=== PATIENT | female | born 1975 | race African-American/Black ===

== ENCOUNTER 2025-02-25 12:42 | Emergency (ER) | payer SELFPAY ==
[2025-02-25] VITALS (9 sets, daily range): BP systolic 170–215; BP diastolic 99–136; PULSE 66–86; RESP 14–18; TEMP 36.7–37; O2SAT 97–99
--- NOTE | ~2025-02-25 | XR_ITS ---
EXAMINATION: XR chest 2V, 02/25/2025 14:05 CDT HISTORY: chest pain COMPARISON: No comparisons available. Technique: 2 views obtained. Findings: The lungs are clear, no effusion. No pneumothorax. Heart is normal size. Mediastinal and hilar contours are within normal limits. Bony thorax no acute abnormality. Impression: No acute cardiopulmonary abnormality. Reviewed, dictated and finalized at location A. Impression: No acute cardiopulmonary abnormality.
--- NOTE | 2025-02-25 13:04 | ED.GENADULT ---
HPI - General Adult General Chief complaint: Unspecified <Madeline Witt APRN - Last Filed: 02/25/25 13:06> Stated complaint: High BP <Madeline Witt APRN - Last Filed: 02/25/25 13:06> Time Seen by Provider: 02/25/25 13:04 <Madeline Witt APRN - Last Filed: 02/25/25 13:06> Focused HPI: Patient is a 50-year-old female who presents to the ER with resolved chest pain and concerns for high blood pressure. She reports her symptoms started earlier today. Patient denies any recent fevers, shortness of breath, lower extremity swelling, or abdominal pain. She denies any medical history relevant to this ER visit pain GENERAL: Well-appearing, well-nourished, and in no acute distress. HEAD: Normocephalic, atraumatic. CHEST: Clear to auscultation. ?No respiratory distress. HEART: Tachycardia, regular rhythm NEURO: ?Alert and oriented x3. Patient screened in triage and initial orders placed.? ?Additional care and disposition to be based upon?diagnostic testing and treatment. <Madeline Witt APRN - Last Filed: 02/25/25 13:06> History of Present Illness HPI narrative: per hpi <Krista Collins MD - Last Filed: 02/25/25 21:39> Related Data Allergies/adverse reactions: Allergies Allergy/AdvReac Type Severity Reaction Status Date / Time No Known Allergies Allergy Verified 02/25/25 12:58 <Madeline Witt APRN - Last Filed: 02/25/25 13:06> Review of Systems Review of Systems: All systems reviewed & are unremarkable except as noted in HPI and below <Krista Collins MD - Last Filed: 02/25/25 21:39> Exam Narrative: EXAMINATION OF ORGAN SYSTEMS/BODY AREAS: Constitutional: Vital signs per nursing GENERAL:[No acute distress, non-toxic appearing.] HEAD: Normal with no signs of head trauma. EYES: EOMI, conjunctiva normal ENT: Hearing grossly intact LUNGS: Nonlabored breathing. HEART: [Regular rate and rhythm] ABD: [Soft], [nontender to palpation] EXT: Normal range of motion SKIN: [No rashes or lesions.] NEURO: [Alert and oriented x 3. No gross focal sensory or strength deficits.] PSYCH: Normal affect <Krista Collins MD - Last Filed: 02/25/25 21:39> Course Vital Signs Vital signs: Vital Signs Temperature 98.6 F 02/25/25 12:56 Pulse Rate 86 02/25/25 12:56 Respiratory Rate 16 02/25/25 12:56 Blood Pressure 189/125 H 02/25/25 12:56 Pulse Oximetry 98 02/25/25 12:56 Temperature 98.1 F 02/25/25 20:49 Pulse Rate 72 02/25/25 20:49 Respiratory Rate 18 02/25/25 20:49 Blood Pressure 189/99 H 02/25/25 20:49 Pulse Oximetry 99 02/25/25 20:49 <Madeline Witt MARKETING OFFICER - Last Filed: 02/25/25 13:06> Vital Signs Temperature 98.6 F 02/25/25 12:56 Pulse Rate 86 02/25/25 12:56 Respiratory Rate 16 02/25/25 12:56 Blood Pressure 189/125 H 02/25/25 12:56 Pulse Oximetry 98 02/25/25 12:56 Temperature 98.1 F 02/25/25 20:49 Pulse Rate 72 02/25/25 20:49 Respiratory Rate 18 02/25/25 20:49 Blood Pressure 189/99 H 02/25/25 20:49 Pulse Oximetry 99 02/25/25 20:49 <Krista Collins MD - Last Filed: 02/25/25 21:39> Medical Decision Making MDM Narrative Medical decision making narrative: Patient states she was at work when she felt what felt like her usual hot flashes, a co-worker to the blood pressure noticed that it was high and had her come to the emergency room. Patient states she has not seen a doctor in many years, has not been diagnosed with high blood pressure in the past. She denies any chest pain, shortness of breath, she has no headaches or dizziness or blurry vision. EKG - 12-Lead: Performed at 1999. Interpreted by me. [Sinus rhythm]. Rate 62. [Normal] axis. CA-interval 146. QRS duration 107. QTc 437. She does have some flattened T-waves in anterolateral leads that she has no prior EKG for comparison Impression: No EKG evidence of acute ischemia or dysrhythmia. Chest x-ray on my independent interpretation does not show any obvious consolidation pneumothorax Labs including troponin are negative, though she does have some very minimally elevated LFTs. Patient with asymptomatic hypertension. No signs or symptoms of end organ dysfunction; no chest pain or shortness of breath, neurological deficits, severe headaches, visual disturbance, oliguria, or symptoms of dissection/AAA). Long-term risks of hypertension, especially uncontrolled, were discussed including increased risks of kidney disease, vascular disease, stroke and heart disease. We discussed lifestyle modifications including diet and exercise. I will start patient on amlodipine here and provide script for short course, patient expressed understanding of the instructions and strongly advised to follow-up with PMD for further management. <Krista Collins MD - Last Filed: 02/25/25 21:39> Vital Signs Vital Signs: Vital Signs Temperature 98.6 F 02/25/25 12:56 Pulse Rate 86 02/25/25 12:56 Respiratory Rate 16 02/25/25 12:56 Blood Pressure 189/125 H 02/25/25 12:56 Pulse Oximetry 98 02/25/25 12:56 Temperature 98.1 F 02/25/25 20:49 Pulse Rate 72 02/25/25 20:49 Respiratory Rate 18 02/25/25 20:49 Blood Pressure 189/99 H 02/25/25 20:49 Pulse Oximetry 99 02/25/25 20:49 <Madeline Witt APRN - Last Filed: 02/25/25 13:06> Vital Signs Temperature 98.6 F 02/25/25 12:56 Pulse Rate 86 02/25/25 12:56 Respiratory Rate 16 02/25/25 12:56 Blood Pressure 189/125 H 02/25/25 12:56 Pulse Oximetry 98 02/25/25 12:56 Temperature 98.1 F 02/25/25 20:49 Pulse Rate 72 02/25/25 20:49 Respiratory Rate 18 02/25/25 20:49 Blood Pressure 189/99 H 02/25/25 20:49 Pulse Oximetry 99 02/25/25 20:49 <Krista Collins MD - Last Filed: 02/25/25 21:39> Lab Data Result diagrams: 02/25/25 19:36 02/25/25 19:36 <Madeline Witt, MARKETING OFFICER - Last Filed: 02/25/25 13:06> Labs: Lab Results 02/25/25 Range/Units 19:36 WBC 8.9 (4.5-10.0) K/mm3 RBC 4.10 L (4.2-5.4) M/mm3 Hgb 13.3 (12.0-15.0) g/dL Hct 40.3 (37.0-47.0) % MCV 98.3 (80-100) fl MCH 32.4 (26-34) pg MCHC 33.0 (32-36) g/dl RDW 13.1 (11.5-14.5) % Plt Count 282 (150-375) k/mm3 MPV 9.1 (7.4-10.4) fl Immature Gran % (Auto) 0.1 (0-0.5) % Neut % (Auto) 53.8 (45.5-73.1) % Lymph % (Auto) 33.5 (18.3-44.2) % [place] % (Auto) 6.3 (2.6-8.5) % Eos % (Auto) 6.0 H (0-4.4) % Baso % (Auto) 0.3 (0.2-1.2) % Lymph # (Auto) 2.98 (0.9-3.2) K/mm3 [place] # (Auto) 0.6 (0.1-0.6) K/mm3 Eos # (Auto) 0.5 H (0-0.3) K/mm3 Baso # (Auto) 0.0 (0.0-0.1) K/mm3 Abs Immat Gran (auto) 0.01 (0.00-0.031) K/mm3 Absolute Neuts (auto) 4.8 (1.3-6.7) K/mm3 Absolute Nucleated RBC 0.000 (0.0-0.012) K/mm3 Nucleated RBC % 0.0 (0.0-0.2) % Sodium 137 (137-145) mmol/L Potassium 3.4 (3.4-5.0) mmol/L Chloride 106 (98-107) mmol/L Carbon Dioxide 23 (22-30) mmol/L Anion Gap 8 (4-12) mmol/L BUN 17 (7-17) mg/dL Creatinine 0.75 (0.7-1.0) mg/dL Estim Creat Clear Calc 80 ml/min Estimated GFR > 60 (59 - ) Glucose 105 (65-110) mg/dL Calcium 9.2 (8.4-10.2) mg/dL Total Bilirubin 0.8 (0.2-1.3) mg/dL AST 43 H (14-36) U/L ALT 49 H (6-35) U/L Alkaline Phosphatase 117 (38-126) U/L Troponin I < 0.012 (0.000-0.034) ng/mL Total Protein 8.2 (6.3-8.2) g/dL Albumin 4.4 (3.5-5.1) g/dL Lipase 35 (23-300) U/L <Madeline Witt, MARKETING OFFICER - Last Filed: 02/25/25 13:06> Lab Results 02/25/25 Range/Units 19:36 WBC 8.9 (4.5-10.0) K/mm3 RBC 4.10 L (4.2-5.4) M/mm3 Hgb 13.3 (12.0-15.0) g/dL Hct 40.3 (37.0-47.0) % MCV 98.3 (80-100) fl MCH 32.4 (26-34) pg MCHC 33.0 (32-36) g/dl RDW 13.1 (11.5-14.5) % Plt Count 282 (150-375) k/mm3 MPV 9.1 (7.4-10.4) fl Immature Gran % (Auto) 0.1 (0-0.5) % Neut % (Auto) 53.8 (45.5-73.1) % Lymph % (Auto) 33.5 (18.3-44.2) % [place] % (Auto) 6.3 (2.6-8.5) % Eos % (Auto) 6.0 H (0-4.4) % Baso % (Auto) 0.3 (0.2-1.2) % Lymph # (Auto) 2.98 (0.9-3.2) K/mm3 [place] # (Auto) 0.6 (0.1-0.6) K/mm3 Eos # (Auto) 0.5 H (0-0.3) K/mm3 Baso # (Auto) 0.0 (0.0-0.1) K/mm3 Abs Immat Gran (auto) 0.01 (0.00-0.031) K/mm3 Absolute Neuts (auto) 4.8 (1.3-6.7) K/mm3 Absolute Nucleated RBC 0.000 (0.0-0.012) K/mm3 Nucleated RBC % 0.0 (0.0-0.2) % Sodium 137 (137-145) mmol/L Potassium 3.4 (3.4-5.0) mmol/L Chloride 106 (98-107) mmol/L Carbon Dioxide 23 (22-30) mmol/L Anion Gap 8 (4-12) mmol/L BUN 17 (7-17) mg/dL Creatinine 0.75 (0.7-1.0) mg/dL Estim Creat Clear Calc 80 ml/min Estimated GFR > 60 (59 - ) Glucose 105 (65-110) mg/dL Calcium 9.2 (8.4-10.2) mg/dL Total Bilirubin 0.8 (0.2-1.3) mg/dL AST 43 H (14-36) U/L ALT 49 H (6-35) U/L Alkaline Phosphatase 117 (38-126) U/L Troponin I < 0.012 (0.000-0.034) ng/mL Total Protein 8.2 (6.3-8.2) g/dL Albumin 4.4 (3.5-5.1) g/dL Lipase 35 (23-300) U/L <Krista Collins MD - Last Filed: 02/25/25 21:39> Discharge Plan Discharge Clinical Impression: Asymptomatic hypertension <Madeline Witt APRN - Last Filed: 02/25/25 13:06> Patient Disposition: Home <Madeline Witt APRN - Last Filed: 02/25/25 13:06> Condition: Stable <Madeline Witt APRN - Last Filed: 02/25/25 13:06> Instructions: Antibiotic Form, Hypertension (ED) <Madeline Witt APRN - Last Filed: 02/25/25 13:06> Additional Instructions: Please follow-up with a primary care doctor and possibly with manufacturing electrician. If you start having any chest pain, shortness of breath, headache or vision changes or anything else concerning, please come back to the hospital. Please start taking the blood pressure medications as prescribed. <Madeline Witt, SUMAN - Last Filed: 02/25/25 13:06> Patient Language: Thai <Madeline Witt APRN - Last Filed: 02/25/25 13:06> Prescriptions: New amlodipine 10 mg tablet 10 mg PO DAILY Qty: 30 0RF <Madeline Witt, MARKETING OFFICER - Last Filed: 02/25/25 13:06> Follow-up/Referrals: Umair Cintron MD [Physician, Cardiology] - 2 Days Scooter Acosta MD [Physician, Family Practice] - 2 Days PHYSICIAN,HEAD GROWER [Primary Care Provider, Internal Medicine] <Madeline Witt, SUMAN - Last Filed: 02/25/25 13:06>
--- OUTSIDE RECORDS SUMMARY | 2025-02-25 19:26 | XMS_ITS | Clinical Summary ---
Author Organization [facility] Medical Office Building [address] Address [address] [place] [address] Care Team Providers Care Chore Tender Name Role Phone Ashly Reeves MD Unavailable [phone] Paula Nino MD Primary Care Provider Allergies Active Allergy Reactions Criticality Noted Date Comments Pecan Nut Rash Medium 01/11/2023 Medications omeprazole (PriLOSEC) 20 mg capsule Take 1 capsule (20 mg total) by mouth daily Active iron fum,ps-folic-B comp,C no.9 125 mg iron- 1 mg capsuleIndicat ions:Mineral Deficiency Take 1 capsule by mouth daily 30 capsule 11 08/17/19 22 Active ibuprofen (ADVIL,MOTRIN) 600 mg tabletIndicati ons:Pain Take 1 tablet (600 mg total) by mouth every 6 (six) hours 30 tablet 1 10/13/19 22 Active cyclobenzaprin e (FLEXERIL) 10 mg tablet cyclobenzaprine 10 mg tablet TAKE 1 TABLET BY MOUTH THREE TIMES DAILY NEEDED Active ergocalciferol (VITAMIN D) 50,000 unit capsule Vitamin D2 1,250 mcg (50,000 unit) capsule TAKE 1 CAPSULE BY MOUTH ONCE A WEEK Active Active Problems Patient Care Coordination No te Formatting of this note migh t be different from the original. Alexia Singh is a 46 y.o. female admitted for LOW HEMOGLOBIN on 08/15/2021. Waiting for CBC to return and discharge when Hb is above 7 and will get uterine biopsy before d/c. Anticipate discharge in 1 day. Anticipated discharge to home. Diet: reg Code: full Consults: none DVT ppx: not indicated due to heavy period GI ppx: not indicated Problem Noted Date Diagnosed Date Ventral hernia without obstruction or gangrene 0 01/11/2023 Current mild episode of major depressive disorde r 08/25/2021 Assessment & Plan (08/25/2021 5:30 PM CDT): Will increase her prozac to 40mg Well woman exam 08/25/2021 Overview (08/25/2021): Lab: Pap:all normal. Last one was 2017. No recent labs. Sravani: 2019. Colonoscopy:due BMD: Gardasil: didn't have Iron deficiency anemia due to chronic blood loss Assessment & Plan (08/16/2021 7:48 AM PULLER MACHINE): Pt is a 46 yo F w/ a h/o of dysmenorrhea and uterine fibroids who presents for anemia 2/2 to blood loss. She was transfused 3 unit of PRBC w/ improvement of her Hb from 4 to 7.1. She is going to follow up w/ Dr. Reeves for hysterectomy in the near future. 08/16, he VS are stable, PE demonstrated conjunctival palor, and peripheral pulses were 2+ and equal in all extremities. - will obtain uterine biopsy on 08/16 - Discussed alternating tylenol and ibuprofen, and adding antihistamine for appropriate pain management instead of using etoh - Have pt f/u w/ Dr. Reeves for further gynecologic care Resolved Problems Problem Noted Date Diagnosed Date Resolved Date Iron deficiency anemia, unspecified 08/21/2021 01/11/2023 Dysmenorrhea 08/16/2021 01/11/2023 Assessment & Plan (08/16/2021 7:47 AM PULLER MACHINE): Continue as planned under Iron Deficiency anemia due to chronic blood loss Menorrhagia with regular cycle 08/16/2021 01/11/2023 Overview (08/16/2021): Added automatically from request for surgery [id number] Assessment & Plan (10/28/2021 7:04 AM CDT): S/p tahbso Doing well Return to full activies To continue iron for the full 6 months as she was so depleted. rto 12m for wwe Assessment & Plan (08/25/2021 5:30 PM CDT): To usg To come to the [place] office for EMB To tsh and cbc Pap done today Uterine leiomyoma 08/16/2021 01/11/2023 Overview (08/16/2021): Added automatically from request for surgery [id number] Assessment & Plan (09/11/2021 6:28 AM CDT): Doing well after TAHBSO RTO 4 weeks for full exam Restrictions reviewed. Surgical History Surgery Date Site/Laterality Comments HYSTERECTOMY 08/29/2021 Medical History Medical History Date Comments Anemia Depression GERD (gastroesophageal reflu x disease) Uterine leiomyoma 08/16/2021 Added automati juan f from request for surgery [id number] Menorrhagia with regular cycle 08/16/2021 A dded automatically from request for surgery [id number] Dysmenorrhea 08/16/2021 Family History Medical History Relation Name Comments Hypertension Father Diabetes Father's Brother Diabetes Father's Sister Cervical cancer Mother Hypertension Mother Colon cancer Neg Hx Uterine cancer Neg Hx Relation Name Status Comments Father Father's Brother Father's Sister Mother Social History Tobacco Use Types Packs/Day Years Used Date Smoking Tobacco: Former Smokeless Tobacco: Never Tobacco Cessation:Counseling Given: Not Answered Comments:Occasional cigarette Alcohol Use Standard Drinks/Week Comments Never 0 (1 standard drink = 0.6 oz pur e alcohol) Humiliation, Afraid, Rape, and Kick questionnair e Answer Date Recorded Within the last year, have y ou been afraid of your partner or ex-partner? No 08/14/2021 Within the last year, have y ou been humiliated or emotionally abused in other ways by your partner or ex-partner? No Within the last year, have y ou been kicked, hit, slapped, or otherwise physically hurt by your partner or ex-partner? No 08/14/2021 Within the last year, have y ou been raped or forced to have any kind of sexual activity by your partner or ex-partner? No 08/14/2021 AUDIT-C Answer Date Recorded Q1: How often do you have a drink containing alc ohol? Never 08/29/2021 Average Number of Drinks Not on file 022 Frequency of Binge Drinking Not on file 08/09 PHQ-2 Answer Date Recorded PHQ-2 Total Score (If total score is 3 or more points, staff should administer the PHQ-9) 4 01/11/2023 Comments No Sex and Gender Information Value Date Recorded Sex Assigned at Not on file Legal Sex Female 2:54 PM PULLER MACHINE Gender Identity Not on file Sexual Orientation Not on file Obstetrics History Last Filed Vital Signs Vital Sign Reading Time Taken Comments Blood Pressure 148/84 01/11/2023 11:38 AM CDT Pulse 97 01/11/2023 10:48 AM CDT Temperature 36.3 C (97.3 F) 08/30/2021 11:45 AM CDT Respiratory Rate 16 08/30/2021 11:45 AM CDT Oxygen Saturation 100% 08/29/2021 3:10 PM CDT Inhaled Oxygen Concentration - - Weight 78.6 kg (173 lb 3.2 oz) 01/11/2023 10:48 AM CDT Height 162.6 cm (5' 4) 01/11/2023 10:48 AM CDT Body Mass Index 29.73 01/11/2023 10:48 AM CDT Plan of Treatment Health Maintenance Due Date Last Done Comments Breast Cancer Screening-Mammogram 1975 Colon Cancer Screening-Colonoscopy 1975 Hepatitis C Screening 1975 DTaP/Tdap/Td Vaccine (1 - Tdap) 1986 Hepatitis B Screening 1993 Regular Well Visit/Exam 18-64 1993 Depression Screening 01/12/2024 01/11/2023, 01/11/2023, 08/14/2021 Zoster Vaccine (1 of 2) 2025 Covid-19 Vaccine (3 - 2024- season) 2025 05/30/2021, 04/03/2021 Influenza Vaccine (#1) 2025 Cervical Cancer Screening Discontinued 08/14/2021 Pneumococcal vaccine <65 Aged Out No longer eligible based on patient's age to complete this topic Procedures Procedure Name Priority Date/Time Associated Diagnosis Comments PAP AND HIGH RISK HPV, REFLEX TO GENOTYPING Routine 08/14/2021 3:10 PM PULLER MACHINE Menorrhagia with regular cycle from Last 3 Months or Most Recently Relevant to Health Maintenance Results * Pap and High Risk HPV, reflex to Genotyping (08/14/2021 3:10 PM PULLER MACHINE) CLINICAL INFORMATION: [facility] Comment:ABNORMAL BLEEDING LMP [facility] Comment:08-12-21 Previous Pap [facility] Comment:INFORMATION NOT PROV IDED Prev. Bx [facility] Comment:INFORMATION NOT PROV IDED SOURCE: [facility] Comment:Cervix, Endocervix Pap, specimen adequacy [facility] Comment: Specimen processed and examined, but unsatisfactory for evaluation due to an insufficient number of squamous cells. HPV interp [facility] Comment: Unable to provide interpretation due to unsatisfactory specimen adequacy. [employer] [facility] Comment: LUDA CT(ASCP) CT screening location: [place] [address] [address] Ruelas [facility] Review manager code [facility] Comment: CHANDANA CT(ASCP) CT screening location: [place] [address] [address] K[address] Ruelas [facility] Comment [facility] Comment: EXPLANATORY NOTE: The Pap is a screening test for cervical cancer. It is not a diagnostic test and is subject to false negative and false positive results. It is most reliable when a satisfactory sample, regularly obtained, is submitted with relevant clinical findings and history, and when the Pap result is evaluated along with historic and current clinical information. Human papillomavirus DNA, High Risk E6/E7 Not Detected NOT DETECTED [facility] Comment: Not Detected High Risk HPV types (16,18,31,33,35,39,45,51,52, 56,58,59,66,68) were not detected. Other HPV types which cause anogenital lesions may be present. The significance of the other types of HPV in malignant processes has not been established. Methodology: Real Time PCR Thin prep 08/14/2021 3:10 PM PULLER MACHINE 08/15/2021 1:31 AM PULLER MACHINE Ashly Reeves MD LAB CYTOLOGY ORDERA BLES Final Result [facility] [id number] [place] [address] [facility] [address] [address] [place] [address] from Last 3 Months or Most Recently Relevant to Health Maintenance Insurance [employer] [facility] Advance Directives For more information, please contact: [phone] * Full Code (Latest Code Status on File) Date Activated Date Inactivated Comments 08/29/2021 10:45 AM 08/30/2021 11:05 PM Care Teams Chore Tender Relationship Specialty Start Date End Date Paula Nino MD PCP - General Family Practice 01/11/23 Ashly Reeves MD Consulting Physician Obstetrics and Gynecology 08/16/21
[2025-02-25 19:43] LABS: Hematocrit 40.3 % (37.0-47.0); Hemoglobin 13.3 g/dL (12.0-15.0); Immature Granulocyte Percent A 0.1 % (0-0.5); Lymphocytes Absolute Auto 2.98 K/mm3 (0.9-3.2); Mean Corpuscular HGB Conc 33.0 g/dl (32-36); Mean Corpuscular Hemoglobin 32.4 pg (26-34); Mean Corpuscular Volume 98.3 fl (80-100); Nucleated Red Blood Cells Absolute Auto 0.000 K/mm3 (0.0-0.012); Nucleated Red Blood Cells Perc 0.0 % (0.0-0.2); Platelet Count Result 282 k/mm3 (150-375); Red Blood Count 4.10 M/mm3 (4.2-5.4); White Blood Count 8.9 K/mm3 (4.5-10.0)
[2025-02-25 19:57] LABS: Alanine Aminotransferase 49 U/L (6-35); Albumin Level 4.4 g/dL (3.5-5.1); Alkaline Phosphatase 117 U/L (38-126); Anion Gap 8 mmol/L (4-12); Aspartate Amino Transferase 43 U/L (14-36); Bilirubin,Total 0.8 mg/dL (0.2-1.3); Blood Urea Nitrogen 17 mg/dL (7-17); Calcium 9.2 mg/dL (8.4-10.2); Carbon Dioxide 23 mmol/L (22-30); Chloride 106 mmol/L (98-107); Estimated CRCL calculation 80 ml/min; Estimated Glomerular Filt Rate > 60; Glucose 105 mg/dL (65-110); Lipase 35 U/L (23-300); Potassium 3.4 mmol/L (3.4-5.0); Sodium 137 mmol/L (137-145); Total Protein 8.2 g/dL (6.3-8.2)
--- NOTE | 2025-02-25 20:04 | ECG_ITS ---
Test Date: 2025-02-25 20:00:46 Measurements Intervals [place] Rate: 62 P: 64 WV: 146 QRS: 11 QRSD: 107 T: 32 QT: 428 QTc: 437 Interpretive Statements SINUS RHYTHM WITH SINUS ARRHYTHMIA MODERATE T-WAVE ABNORMALITY, CONSIDER ANTERIOR ISCHEMIA [-0.1+ mV T WAVE IN V3/V4] ABNORMAL ECG No previous ECG available for comparison Electronically Signed On 02-26-2025 08:05:39 CDT by Umair Cintron M.D.
[2025-02-25 20:05] LABS: Troponin I < 0.012 ng/mL (0.000-0.034)
== END 2025-02-25 20:51 | disposition home or self-care (01) ==
PROVIDERS: Registered Nurse; Emergency Provider Emergency Medicine
DX: I10 Essential (primary) hypertension (principal); R94.31 Abnormal electrocardiogram [ECG] [EKG]
CPT/HCPCS: 36415; 71046; 80053; 83690; 84484; 85025; 93005; 99284; A9270